=== PATIENT | female | born 1980 | race Caucasian/White ===

== ENCOUNTER 2022-12-18 14:53 | Emergency (ER) | payer SELFPAY ==
[2022-12-18] MEDS ORDERED: KETOROLAC 30 MG/ML INJ ONE (15:34)
[2022-12-18] MEDS ORDERED: NA CHLORIDE 0.9% 1,000 ML ONE (15:35)
[2022-12-18] MEDS ORDERED: FAMOTIDINE 20 MG/2 ML VIAL IV ONE (15:35)
[2022-12-18 16:15] LABS: Specific Gravity 1.019 (1.005-1.030); Urine Bacteria 20-50 /HPF (<20); Urine Bilirubin NEGATIVE (Negative); Urine Blood Negative (Negative); Urine Clarity Extremely Turbid (Clear); Urine Color Light-Yellow (Yellow); Urine Glucose NEGATIVE (Negative); Urine Mucus Slight /HPF (None Seen); Urine Protein NEGATIVE (Negative); Urine Urobilinogen Normal (Normal); Urine pH 7.5 (5.0-7.0)
[2022-12-18 16:39] LABS: Albumin 3.8 g/dL (3.4-5.0); Bilirubin Total 0.3 mg/dL (0.2-1.0); Potassium 3.7 mEq/L (3.5-5.1); Protein, Total 7.2 g/dL (6.4-8.2)
[2022-12-18 16:58] LABS: Absolute Lymphocytes (CBC) 1.4 K/uL (0.7-4.9); Hematocrit 37.5 % (36.0-45.0); Lymphocytes % 15.2 % (15.3-44.8); MCV 85.5 fL (80-100); MPV 7.4 fL (7.6-11.3); Platelets 228 thou/uL (152-406); RBC Red Blood Cell Count 4.38 M/uL (3.86-4.86)
--- NOTE | 2022-12-18 17:18 | RAD REPORT ---
EXAM DESCRIPTION: CT - Abdomen Pelvis W Contrast - 12/18/2022 4:57 pm CLINICAL HISTORY: ABD PAIN COMPARISON: No comparisons TECHNIQUE: Thin cut axial CT imaging of the abdomen and pelvis was performed following intravenous a dministration of 100 mL Isovue 300. Multiplanar reformats were generated and reviewed. All CT scans are performed using dose optimization technique as appropriate and may include automated exposure control or mA/KV adjustment according to patient size. FINDINGS: No suspicious findings in the lung bases. The liver, spleen, and pancreas show no suspicious findings. Gallbladder is decompressed, limiting ev aluation. Symmetric renal function is seen with no hydronephrosis or suspicious renal mass. Left renal nonobstr ucting calculi the largest at the mid to lower pole measuring 9 millimeter. 2 millimeter right interp olar region nonobstructing calculus. Right extra renal pelvis is incidentally noted. No dilated bowel loops or bowel wall thickening. No free air, free fluid or inflammatory stranding. N o hernia, mass or bulky lymphadenopathy. The urinary bladder is without significant finding. No suspicious bony findings. IMPRESSION: No acute intra-abdominal process. Bilateral nonobstructing renal calculi more on the left, the largest measuring 9 millimeter. No hydro ureteronephrosis.
[2022-12-18] MEDS ORDERED: NA CHLORIDE 0.9% 100 ML ONE (17:34)
[2022-12-18] MEDS ORDERED: PIPERACIL/TAZO 3.375 GM VIAL IV ONE (17:34)
--- NOTE | 2022-12-18 17:38 | EDPHYS ---
Physician Documentation [facility] – [place], [place] Name: Lesley Gandhi Age: 42 yrs Sex: Female : 1980 Arrival Date: 12/18/2022 Time: 14:53 Bed Treatment Private MD: ED Physician Rah Charles HPI: 12/18 15:43 This 42 yrs old Female presents to ER via Ambulatory with complaints of Abdominal Pain, snw SOME TYPE OF INFECTION. 15:43 The patient presents with abdominal pain in the left upper quadrant. Onset: The snw symptoms/episode began/occurred suddenly, this morning. Associated signs and symptoms: none. The symptoms are described as sharp. Severity of pain: At its worst the pain was moderate severe. The patient has not experienced similar symptoms in the past. placed on PenVK for Strep B urine infection. 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 - Social history:: Smoking status: Patient reports the use of cigarette tobacco products, smokes one-half pack cigarettes per day. ROS: 15:43 Constitutional: Negative for fever, chills, and weight loss, Eyes: Negative for injury, snw pain, redness, and discharge, ENT: Negative for injury, pain, and discharge, Neck: Negative for injury, pain, and swelling, Cardiovascular: Negative for chest pain, palpitations, and edema, Respiratory: Negative for shortness of breath, cough, wheezing, and pleuritic chest pain, : Negative for injury, bleeding, discharge, and swelling, MS/Extremity: Negative for injury and deformity, Skin: Negative for injury, rash, and discoloration, Neuro: Negative for headache, weakness, numbness, tingling, and seizure, Psych: Negative for depression, anxiety, suicide ideation, homicidal ideation, and hallucinations. 15:43 Abdomen/GI: Positive for abdominal pain, of the left upper quadrant. 15:43 Back: Positive for flank pain, on the left. Exam: 15:42 Constitutional: This is a well developed, well nourished patient who is awake, alert, snw and in no acute distress. Head/Face: Normocephalic, atraumatic. Eyes: Pupils equal round and reactive to light, extra-ocular motions intact. Lids and lashes normal. Conjunctiva and sclera are non-icteric and not injected. Cornea within normal limits. Periorbital areas with no swelling, redness, or edema. ENT: Nares patent. No nasal discharge, no septal abnormalities noted. Tympanic membranes are normal and external auditory canals are clear. Oropharynx with no redness, swelling, or masses, exudates, or evidence of obstruction, uvula midline. Mucous membranes moist. Neck: Trachea midline, no thyromegaly or masses palpated, and no cervical lymphadenopathy. Supple, full range of motion without nuchal rigidity, or vertebral point tenderness. No Meningismus. Chest/axilla: Normal chest wall appearance and motion. Nontender with no deformity. No lesions are appreciated. Cardiovascular: Regular rate and rhythm with a normal S1 and S2. No gallops, murmurs, or rubs. Normal PMI, no JVD. No pulse deficits. Respiratory: Lungs have equal breath sounds bilaterally, clear to auscultation and percussion. No rales, rhonchi or wheezes noted. No increased work of breathing, no retractions or nasal flaring. Back: No spinal tenderness. No costovertebral tenderness. Full range of motion. Skin: Warm, dry with normal turgor. Normal color with no rashes, no lesions, and no evidence of cellulitis. MS/ Extremity: Pulses equal, no cyanosis. Neurovascular intact. Full, normal range of motion. Neuro: Awake and alert, GCS 15, oriented to person, place, time, and situation. Cranial nerves II-XII grossly intact. Motor strength 5/5 in all extremities. Sensory grossly intact. Cerebellar exam normal. Normal gait. Psych: Awake, alert, with orientation to person, place and time. Behavior, mood, and affect are within normal limits. 15:42 Abdomen/GI: Inspection: abdomen appears normal, Bowel sounds: normal, Palpation: moderate abdominal tenderness, in the posterior aspect of left lateral abdomen and left upper quadrant. Vital Signs: 15:00 BP 141 / 86; Pulse 87; Resp 17; Temp 97.9; Pulse Ox 100% ; Weight 70.31 kg; Pain 6/10; ap3 16:46 BP 106 / 74; Pulse 61; Resp 16; Pulse Ox 100% on R/A; mb9 15:00 Pain Scale: Adult ap3 MDM: 15:10 Patient medically screened. snw 15:44 Differential diagnosis: bowel obstruction, gastritis, pancreatitis, Pyelonephritis, snw Ureterolithiasis. Data reviewed: vital signs, nurses notes. 17:01 ED course: returned from CT via W/C in no distress. snw 17:40 ED course: Continue current PenVK rx. snw 12/18 15:22 Order name: CBC with Diff; Complete Time: 17:05 snw 12/18 15:22 Order name: CMP; Complete Time: 16:40 snw 12/18 15:22 Order name: Lipase; Complete Time: 16:40 snw 12/18 15:22 Order name: Urinalysis w/ reflexes; Complete Time: 16:18 snw 12/18 15:22 Order name: [place] Screen Profile; Complete Time: 16:44 snw 12/18 16:18 Order name: Urine Culture EDNM 12/18 15:22 Order name: CT Abd/Pelvis - IV Contrast Only; Complete Time: 17:19 snw 12/18 15:22 Order name: IV Saline Lock; Complete Time: 15:44 snw 12/18 15:22 Order name: Labs collected and sent; Complete Time: 15:44 snw 12/18 16:20 Order name: Labs - recollect needed: recollect lavender top; Complete Time: 16:41 bd Administered Medications: 15:35 Drug: NS 0.9% IV 1000 ml Route: IV; Rate: 1 bolus; Site: left antecubital; mb9 17:39 Follow up: Response: No adverse reaction; IV Status: Completed infusion mb9 15:36 Drug: TORadol - Ketorolac IVP 15 mg Route: IVP; Site: left antecubital; mb9 16:03 Follow up: Response: No adverse reaction mb9 15:38 Drug: Famotidine IVP 20 mg Route: IVP; Site: left antecubital; mb9 16:03 Follow up: Response: No adverse reaction mb9 17:32 Drug: Piperacillin-Tazobactam IVPB 3.375 grams Route: IVPB; Infused Over: 60 mins; mb9 Site: left antecubital; Disposition Summary: 12/18/22 17:37 Discharge Ordered Location: Home snw Condition: Stable snw Diagnosis - UTI/ Urinary tract infection, site not specified snw - Calculus of kidney - bilateral snw Followup: snw - With: Emergency Department - When: As needed - Reason: Fever > 102 F, Worsening of condition Followup: snw - With: Private Physician - When: 1 - 2 days - Reason: Recheck today's complaints, Continuance of care, Re-evaluation by your physician Followup: snw - With: - When: 7 - 10 days - Reason: Recheck today's complaints, Continuance of care Discharge Instructions: - Discharge Summary Sheet snw - Kidney Stones snw - Urinary Tract Infection, Adult snw - Dietary Guidelines to Help Prevent Kidney Stones snw - Rehydration, Adult snw Forms: - Medication Reconciliation Form snw - Thank You Letter snw - Antibiotic Education snw - Prescription Opioid Use snw - Patient Portal Instructions snw - Leadership Thank You Letter snw Prescriptions: - Mobic 7.5 mg Oral Tablet - take 1 tablet by ORAL route 2 times per day take with food; 20 tablet; Refills: snw 0, Product Selection Permitted - Macrobid 100 mg Oral Capsule - take 1 capsule by ORAL route every 12 hours for 10 days; 20 capsule; Refills: snw 0, Product Selection Permitted - promethazine 25 mg Oral Tablet - take 1 tablet by ORAL route every 6 hours As needed; 20 tablet; Refills: 0, snw Product Selection Permitted Signatures: Dispatcher [employer] Ivelisse Hubbard Shelly, AUDIT CONSULTANT-C AUDIT CONSULTANT-Csnw Katie Ortega, RN RN ap3 Dariana Holloway, RN RN mb9
--- NOTE | 2022-12-18 17:38 | ER ---
Nurse's Notes [facility] Name: Lesley Gandhi Age: 42 yrs Sex: Female : 1980 Arrival Date: 12/18/2022 Time: 14:53 Bed Treatment Private MD: Diagnosis: UTI/ Urinary tract infection, site not specified;Calculus of kidney-bilateral Presentation: 12/18 15:00 Chief complaint: Patient states: she is on a penicillin for group B strep in her urine. ap3 patient states she is having left upper abdominal infection, right lower abdominal pain and pain behind her left knee. patient rates her pain as a 6/10 at this time. Coronavirus screen: At this time, the client does not indicate any symptoms associated with coronavirus-19. Ebola Screen: No symptoms or risks identified at this time. Initial Sepsis Screen: Does the patient meet any 2 criteria? No. Patient's initial sepsis screen is negative. Does the patient have a suspected source of infection? Yes: Dysuria/Frequency/Urgency/UTI. Risk Assessment: Do you want to hurt yourself or someone else? Patient reports no desire to harm self or others. Onset of symptoms was December 11, 2022. 15:00 Method Of Arrival: Ambulatory ap3 15:00 Acuity: MULUGETA 3 ap3 Triage Assessment: 15:03 General: Appears in no apparent distress. Behavior is cooperative, appropriate for age. ap3 Pain: Complains of pain in left upper quadrant and right lower quadrant Pain currently is 6 out of 10 on a pain scale. Neuro: Level of Consciousness is awake, alert, obeys commands, Oriented to person, place, time, situation, Gait is steady, Speech is normal. Cardiovascular: Patient's skin is warm and dry. Respiratory: Airway is patent Respiratory effort is even, unlabored, Respiratory pattern is regular, symmetrical. GI: Reports lower abdominal pain, upper abdominal pain. 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 - Social history:: Smoking status: Patient reports the use of cigarette tobacco products, smokes one-half pack cigarettes per day. Screenin:03 [facility] ED Fall Risk Assessment (Adult) History of falling in the last 3 months, ap3 including since admission No falls in past 3 months (0 pts). Abuse screen: Denies threats or abuse. Nutritional screening: No deficits noted. Tuberculosis screening: No symptoms or risk factors identified. Assessment: 15:08 Reassessment: see triage assessment. mb9 16:46 Reassessment: Patient and/or family updated on plan of care and expected duration. Pain mb9 level reassessed. Patient is alert, oriented x 3, equal unlabored respirations, skin warm/dry/pink. Patient states feeling better. Patient states symptoms have improved. 16:52 Reassessment: pt taken to CT via stretcher. mb9 17:40 Reassessment: Discharge pending completion of antibiotics. mb9 Vital Signs: 15:00 BP 141 / 86; Pulse 87; Resp 17; Temp 97.9; Pulse Ox 100% ; Weight 70.31 kg; Pain 6/10; ap3 16:46 BP 106 / 74; Pulse 61; Resp 16; Pulse Ox 100% on R/A; mb9 15:00 Pain Scale: Adult ap3 ED Course: 14:55 Patient arrived in ED. kj1 14:56 Jia Jacinto FNP-C is [facility]. snw 14:56 Rah Charles MD is Attending Physician. snw 15:01 Triage completed. ap3 15:04 Arm band placed on right wrist. ap3 15:08 Dariana Holloway, ART is Primary Nurse. mb9 15:08 Placed in gown. Bed in low position. Call light in reach. Side rails up X 1. Client mb9 placed on continuous cardiac and pulse oximetry monitoring. NIBP monitoring applied. 15:08 No provider procedures requiring assistance completed. mb9 15:33 Inserted saline lock: 22 gauge in left antecubital area, using aseptic technique. mb9 15:44 [place] Screen Profile Sent. mb9 15:44 CBC with Diff Sent. mb9 15:44 CMP Sent. mb9 15:44 Lipase Sent. mb9 15:44 Urinalysis w/ reflexes Sent. mb9 16:24 Urine Culture Sent. mb9 16:58 CT Abd/Pelvis - IV Contrast Only In Process Unspecified. EDMS 17:37 William Kramer MD is Referral Physician. snw 18:43 IV discontinued, intact, bleeding controlled, No redness/swelling at site. Pressure mb9 dressing applied. Administered Medications: 15:35 Drug: NS 0.9% IV 1000 ml Route: IV; Rate: 1 bolus; Site: left antecubital; mb9 17:39 Follow up: Response: No adverse reaction; IV Status: Completed infusion mb9 15:36 Drug: TORadol - Ketorolac IVP 15 mg Route: IVP; Site: left antecubital; mb9 16:03 Follow up: Response: No adverse reaction mb9 15:38 Drug: Famotidine IVP 20 mg Route: IVP; Site: left antecubital; mb9 16:03 Follow up: Response: No adverse reaction mb9 17:32 Drug: Piperacillin-Tazobactam IVPB 3.375 grams Route: IVPB; Infused Over: 60 mins; mb9 Site: left antecubital; Medication: 15:08 VIS not applicable for this client. mb9 Outcome: 17:37 Discharge ordered by . snw 18:43 Discharged to home ambulatory. mb9 18:43 Condition: stable 18:43 Discharge instructions given to patient, Instructed on discharge instructions, follow up and referral plans. Demonstrated understanding of instructions, follow-up care, medications, Prescriptions given X 3. 18:43 Patient left the ED. mb9 Signatures: Dispatcher [employer] EDOH Jia Jacinto, RN FAMILY-C RN FAMILY-Silviaw Katie Ortega RN RN [email or web address] Kailyn Newsome [email or web address] Dariana Holloway RN RN mb9
[2022-12-18 19:35] VITALS: TEMP 97.9; O2SAT 100
[2022-12-18 19:41] VITALS: BP 106/74
== END 2022-12-18 18:43 | disposition home or self-care (01) ==
LOC: ER 14:53
DX: N39.0 Urinary tract infection, site not specified (principal); N20.0 Calculus of kidney; F17.210 Nicotine dependence, cigarettes, uncomplicated; Z88.5 Allergy status to narcotic agent
CPT/HCPCS: 36415; 74177; 80053; 81001; 83690; 85025; 86308; 87086; 87088; 96361; 96374; 96375; 99284; J2543; J7030; Q9967

== ENCOUNTER 2023-11-12 14:12 | Emergency (ER) | payer SELFPAY ==
--- OUTSIDE RECORDS SUMMARY | 2023-11-12 14:16 | XMS REPORT | Continuity of Care Document ---
Author Name Unknown Address [address] [place] [address] [facility] Address [address] [place] [address] Care Team Providers Care Web Architect Name Role Phone PCP, PATIENT DOES NOT HAVE A Primary Care Physic yuli Unavailable Tracee Dempsey DO Attending Clinician [phone] TRACEE DEMPSEY Attending Clinician Unavailab le GC_GCBZW_Kadiyala_S Attending Clinician UnavailAung Burris Attending Clinician Unavailable TRACEE DEMPSEY Admitting Clinician Unavailab le GC_GCBZW_Kadikaleba_S Admitting Clinician UnavailAung Burris Admitting Clinician Unavailable Problems Condition Name Condition Details Condition Category Status Onset Date Resolution Date Last Treatment Date Treating Clinician Comments Source [id number] Bladder pain Problem [facility] [id number] Left upper quadrant pain Problem [facility] [id number] Left flank pain Problem [facility] [id number] Left nephrolith iasis Problem [facility] Allergies, Adverse Reactions, Alerts Allergy Name Allergy Type Status Severity Reaction(s) Onset Date Inactive Date Treating Clinician Comments Source Hydrocod one Propensi ty to adverse reaction s Active Unknown - See comments 2018-05 00:00: 00 [facility] HYDROCOD ONE DRUG INGREDI Active Unknown-Cmnt 2018-05 00:00: 00 [facility] 4614 Drug allergy Active Unknown [facility] Social History Social Habit Start Date Stop Date Quantity Comments Source Sexual orientation U [facility] Sex Assigned At [facility] History of Tobacco Use [facility] Smoking Status Start Date Stop Date Source Tobacco smoking consumption unknown [facility] Medications Ordered Medication Name Filled Medication Name Start Date Stop Date Current Medication? Ordering Clinician Indication Dosage Frequency Signature (SIG) Comments Components Source FENTanyl PF (SUBLIMAZE (PF)) injection 50 mcg 2022-05 20:45: 00 03-30 20:20 :00 No 50ug 50 mcg, Slow IV Push, ONCE, 1 dose, On 03/30/23 at 1445, Routine [facility] NaCl 0.9% (NS) bolus infusion 1,000 mL 2022-05 18:15: 00 03-30 19:14 :00 No 1000mL at 999 mL/hr, 1,000 mL, IV Infusion, ONCE, 1 dose, On 03/30/23 at 1215, [facility] ketorolac (TORADOL) injection 30 mg 2022-05 18:15: 00 03-30 17:37 :00 No 30mg 30 mg, Slow IV Push, ONCE, 1 dose, On 03/30/23 at 1215, Routine [facility] ondansetron (ZOFRAN (PF)) injection 4 mg 2022-05 17:30: 00 03-30 17:37 :00 No 4mg 4 mg, Slow IV Push, ONCE, 1 dose, On 03/30/23 at 1130, [facility] ketorolac 10 mg tablet 2022-05 00:00: 00 Yes [id number] 10mg Take 1 tablet by mouth every 6 (six) hours as needed for Pain (scale 1-3). [facility] ondansetron 4 mg disintegrat ing tablet 2022-05 00:00: 00 Yes [id number] 4mg Take 1 tablet by mouth every 8 (eight) hours as needed for Nausea and Vomiting (N/V). [facility] ibuprofen 600 mg tablet 2018-05 00:00: 00 03-30 00:00 :00 No [id number] 600mg Take 1 tablet by mouth every 6 (six) hours as needed for Pain (scale 4-6). [facility] ondansetron (ZOFRAN ODT) 4 mg disintegrat ing tablet 2018-05 00:00: 00 03-30 00:00 :00 No [id number] 4mg Take 1 tablet by mouth every 8 (eight) hours as needed for Nausea and Vomiting (N/V). [facility] penicillAMI NE 250 MG penicillAMI NE 250 MG No 1{capsu le_on_a n_empty _stomac h} QD penicillAM INE 250 MG hydrOXYzine HCl 25 MG hydrOXYzine HCl 25 MG No 1{table t_as_ne eded} QD hydrOXYzin e HCl 25 MG Macrobid Macrobid No Macrobid Meloxicam 7.5 MG Meloxicam 7.5 MG No 1{table t} QD Meloxicam 7.5 MG Promethazin e HCl 25 MG Promethazin e HCl 25 MG No 1{table t_as_ne eded} BID Promethazi ne HCl 25 MG penicillAMI NE 250 MG penicillAMI NE 250 MG No 1{capsu le_on_a n_empty _stomac h} QD penicillAM INE 250 MG hydrOXYzine HCl 25 MG hydrOXYzine HCl 25 MG No 1{table t_as_ne eded} QD hydrOXYzin e HCl 25 MG Macrobid Macrobid No Macrobid Meloxicam 7.5 MG Meloxicam 7.5 MG No 1{table t} QD Meloxicam 7.5 MG Promethazin e HCl 25 MG Promethazin e HCl 25 MG No 1{table t_as_ne eded} BID Promethazi ne HCl 25 MG penicillAMI NE 250 MG penicillAMI NE 250 MG No 1{capsu le_on_a n_empty _stomac h} QD penicillAM INE 250 MG hydrOXYzine HCl 25 MG hydrOXYzine HCl 25 MG No 1{table t_as_ne eded} QD hydrOXYzin e HCl 25 MG Macrobid Macrobid No Macrobid Meloxicam 7.5 MG Meloxicam 7.5 MG No 1{table t} QD Meloxicam 7.5 MG Promethazin e HCl 25 MG Promethazin e HCl 25 MG No 1{table t_as_ne eded} BID Promethazi ne HCl 25 MG Vital Signs Vital Name Observation Time Observation Value Comments S ource Systolic blood pressure 2023-03-30 22:00:00 114 mm[Hg] [facility] Diastolic blood pressure 2023-03-30 22:00:00 72 mm[Hg] [facility] Heart rate 2023-03-30 22:00:00 57 /min [facility] Body temperature 2023-03-30 22:00:00 36.61 Adina [facility] Respiratory rate 2023-03-30 22:00:00 16 /min [facility] Oxygen saturation in Arterial blood by Pulse oximetry 2023-03-30 22:00:00 99 /min [facility] Body height 2023-03-30 16:45:00 167.6 cm [facility] Body weight 2023-03-30 16:45:00 68.04 kg [facility] BMI 2023-03-30 16:45:00 24.21 kg/m2 [facility] height 2022-12-27 10:00:00 66 [in_i] Commo n [facility] weight 2022-12-27 10:00:00 155.6 [lb_av] Co mmon [facility] temperature 2022-12-27 10:00:00 97.2 [degF] Com mon [facility] bmi 2022-12-27 10:00:00 25.11 kg/m2 Comm on [facility] oximetry 2022-12-27 10:00:00 98 % Commo n [facility] respiratory rate 2022-12-27 10:00:00 18 /min [facility] blood pressure systolic 2022-12-27 10:00:00 111 mm[Hg] [facility] blood pressure diastolic 2022-12-27 10:00:00 69 mm[Hg] [facility] height 2022-12-19 17:15:00 66 [in_i] Commo n [facility] weight 2022-12-19 17:15:00 159.4 [lb_av] Co mmon [facility] temperature 2022-12-19 17:15:00 97.6 [degF] Com mon [facility] bmi 2022-12-19 17:15:00 25.73 kg/m2 Comm on [facility] oximetry 2022-12-19 17:15:00 98 % Commo n [facility] respiratory rate 2022-12-19 17:15:00 18 /min [facility] blood pressure systolic 2022-12-19 17:15:00 127 mm[Hg] [facility] blood pressure diastolic 2022-12-19 17:15:00 78 mm[Hg] [facility] Procedures Procedure Date / Time Performed Performing Clinicia n Source POCT TEST 2023-03-30 17:39:00 Aminah Dempsey ra [facility] COMP. METABOLIC PANEL ([id number]) 2023-03-30 17:36:00 Tracee Dempsey [facility] CBC WITH DIFF 2023-03-30 17:36:00 [facility] 2023-03-30 17:36:00 [facility] OF BENEFITS 2023-03-30 17:10:07 Docto r Unassigned, [place] [facility] CONSENT/REFUSAL FOR DIAGNOSIS AND TREATMENT 2023-03-30 16:41:17 Doctor Unassigned, [place] [facility] Encounters Start Date/Time End Date/Time Encounter Type Admission Type Attending Clinicians Care Facility Care Department Encounter ID Source 2022-12-19 16:27:01 Outpatient [facility] [id number] [facility] 2023-10-01 14:52:16 2023-10-01 14:52:16 Outpatient [facility] [id number] [place] 2023-09-23 11:32:43 2023-09-23 11:32:43 Outpatient [facility] [id number] [place] 2023-05-29 09:05:21 2023-05-29 09:05:21 Outpatient [facility] [id number] [place] 2023-03-30 10:47:00 2023-03-30 16:13:00 Emergency Tracee Dempsey [facility] [id number] [facility] 2023-03-30 10:47:00 2023-03-30 16:13:00 Emergency X TRACEE DEMPSEY [facility] ERT [id number] [facility] 2023-03-02 00:00:00 2023-03-02 00:00:00 Outpatient GC_GCBZW_Ka diyala_S PRIV PRIV [id number] [facility] 2023-03-01 00:00:00 2023-03-01 00:00:00 Outpatient GC_GCBZW_Ka diyala_S PRIV PRIV [id number] [facility] 2023-01-21 00:00:00 2023-01-21 00:00:00 (TEL) [facility] [id number] [facility] 2022-12-27 00:00:00 2022-12-27 00:00:00 OFFICE VISIT ESTAB PT LEVEL 4 [facility] ST[facility] [id number] [facility] 2022-12-19 00:00:00 2022-12-19 00:00:00 OFFICE VISIT NEW PT LEVEL 3 [facility] [id number] [facility] 2022-12-13 14:39:37 2022-12-13 14:39:37 Outpatient [facility] [id number] [place] 2022-09-04 13:13:02 2022-09-04 13:13:02 Outpatient [facility] [id number] [place] 2019-04-22 10:45:50 2019-04-22 13:59:00 Emergency X KALA, K [facility] ERT [id number] [facility] Results Test Description Test Time Test Comments Results Result Co mments Source COMPREHENSIVE METABOLIC [id number] 03:52:37* Test Item Value Reference Range Interpretation Comme nts GLUCOSE (test code = 2217) 102 MG/DL 70-99 H BUN (test code = 2208) 11 MG/DL 6-20 CREATININE (test code = 2214) 0.80 MG/DL 0.60-1.30 eGFR (2020 CKD-EPI) (test co de = 22503) 94 ML/MIN/1.73 >60 CALC BUN/CREAT (test code = 2235) 14 RATIO 6-28 SODIUM (test code = 2231) 138 MEQ/L 133-146 POTASSIUM (test code = 2228) 4.3 MEQ/L 3.5-5.4 CHLORIDE (test code = 2215) 103 MEQ/L 95-107 CARBON DIOXIDE (test code = 2206) 24 MEQ/L 19-31 CALCIUM (test code = 2209) 9.6 MG/DL 8.5-10.5 PROTEIN, TOTAL (test code = 2229) 7.5 G/DL 6.1-8.3 ALBUMIN (test code = 2201) 4.8 G/DL 3.5-5.2 CALC GLOBULIN (test code = 2240) 2.7 G/DL 1.9-3.7 CALC A/G RATIO (test code = 2234) 1.8 RATIO 1.0-2.6 BILIRUBIN, TOTAL (test code = 2207) 0.4 MG/DL <=1.2 ALKALINE PHOSPHATASE (test code = 2204) 53 U/L 40-113 AST (test code = 2218) 15 U/L 9-40 ALT (test code = 2219) 18 U/L 5-40 LIPID [id number] 03:52:37* Test Item Value Reference Range Interpretation Comme nts CHOLESTEROL (test code = 2210) 208 MG/DL <200 H TRIGLYCERIDES (test code = 2232) 115 MG/DL <150 HDL CHOLESTEROL (test code = 2220) 42 MG/DL >39 CALC LDL CHOL (test code = 2237) 143 MG/DL <100 H NOTE: CALCULATED LDL IS BASED ON JAMEY-ALEJANDRE METHOD WHICHINCLUDES ADJUSTABLE TRIGLYCERIDE:VLDL CHOLESTEROL RATIO.THIS FACTOR VARIES BY MEASURED TRIGLYCERIDE AND NON-HDLCHOLESTEROL CONCENTRATIONS WITH INCREASED CALCULATED LDL SEENIN HIGHER TRIGLYCERIDE OR LOWER NON-HDL SPECIMENS. FOR MOREINFORMATION, SEE CLIENT ANNOUNCEMENT AT [email or web address] [email or web address] RATIO LDL/HDL (test code = 2238) 3.40 RATIO <3.22 H HEMOGLOBIN [id number] 02:13:54* Test Item Value Reference Range Interpretation Comme nts HEMOGLOBIN A1c (test code = 81098) 5.7 % 4.2-5.6 H [employer] GUIDELINES FOR HGB A1C: PREDIABETES/INCREASED RISK . . . . . . . 5.7-6.4% DIAGNOSIS OF DIABETES . . . . . . . . . >=6.5% WITH CONFIRMATION OR APPROPRIATE SYMPTOMS NOTE: ASSAY MAY BE AFFECTED BY HEMOGLOBINOPATHIES (SICKLE CELL ANEMIA, S-C DISEASE, OTHERS) OR ARTIFICIALLY LOWERED BY DECREASED RED CELL SURVIVAL (HEMOLYTIC ANEMIAS, BLOOD LOSS, ETC.). CONSIDER ALTERNATE TESTING OR LABORATORY CONSULTATION. UNLESS OTHERWISE INDICATED, ALL TESTING PERFORMED AT [facility] [address] [place] [address] TECHNICAL SUPPORT CONSULTANT: MARCELLA CINTRON M.D. CLIA NUMBER [id number] [facility] [place]. [id number] COMP. METABOLIC PANEL ([id number])2023-03-30 18:10:19* Test Item Value Reference Range Interpretation Comme nts NA (test code = 6240451199) 139 mmol/L 135-145 K (test code = 7952369301) 4.2 mmol/L 3.5-5.0 CL (test code = 5060899558) 105 mmol/L 98-108 CO2 TOTAL (test code = 5398786613) 28 mmol/L 23-31 AGAP (test code = 5588218218) 6 2-16 BUN (test code = 7467688656) 12 mg/dL 7-23 GLUCOSE (test code = 4776881587) 98 mg/dL 70-110 CREATININE (test code = 6163123370) 0.70 mg/dL 0.50-1.04 TOTAL BILI (test code = 7226040592) 0.4 mg/dL 0.1-1.1 CALCIUM (test code = 2007501210) 9.6 mg/dL 8.6-10.6 T PROTEIN (test code = 6748030124) 8.0 g/dL 6.3-8.2 ALBUMIN (test code = 0365518020) 4.6 g/dL 3.5-5.0 ALK PHOS (test code = 0935791187) 44 U/L 34-122 ALTv (test code = 1742-6) 18 U/L 5-35 AST(SGOT) (test code = 5982819829) 20 U/L 13-40 eGFR (test code = 89692-5) 110.2 mL/min/1.73m2 CKD-EPI eGFR (20 21). Assuming creatinine has been stable day-to-day for at least three months, the eGFR indicates Category G1 (>= 90 mL/min/1.73 m2) [facility] WITH [id number] 18:00:39* Test Item Value Reference Range Interpretation Comme nts WBC (test code = 6690-2) 6.60 See_Comment [Automated virtual tweens ltda bCODE] The system which generated this result transmitted reference range: 4.30 - 11.10 10*3/?L. The reference range was not used to interpret this result as normal/abnormal. RBC (test code = 789-8) 4.78 See_Comment [Automated virtual tweens ltda bCODE] The system which generated this result transmitted reference range: 3.93 - 5.25 10*6/?L. The reference range was not used to interpret this result as normal/abnormal. HGB (test code = 718-7) 14.1 g/dL 11.6-15.0 HCT (test code = 4544-3) 40.8 % 35.7-45.2 MCV (test code = 787-2) 85.4 fL 80.6-95.5 MCH (test code = 785-6) 29.5 pg 25.9-32.8 MCHC (test code = 786-4) 34.6 g/dL 31.6-35.1 RDW-SD (test code = 47289-3) 35.5 fL 39.0-49.9 L RDW-CV (test code = 788-0) 11.5 % 12.0-15.5 L PLT (test code = 777-3) 214 See_Comment [Automated virtual tweens ltda ge] The system which generated this result transmitted reference range: 166 - 358 10*3/?L. The reference range was not used to interpret this result as normal/abnormal. MPV (test code = 55511-5) 9.1 fL 9.5-12.9 L NRBC/100 WBC (test code = 3020876759) 0.0 See_Comment [Automated [employer] ssage] The system which generated this result transmitted reference range: 0.0 - 10.0 /100 WBCs. The reference range was not used to interpret this result as normal/abnormal. NRBC x10^3 (test code = 4514035001) See_Comment [Automated virtual tweens ltda ge] The system which generated this result transmitted reference range: 10*3/?L. The reference range was not used to interpret this result as normal/abnormal. GRAN MAT (NEUT) % (test code = 770-8) 64.9 % IMM GRAN % (test code = 6560970467) 0.30 % LYMPH % (test code = 736-9) 25.0 % MONO % (test code = 5905-5) 8.3 % EOS % (test code = 713-8) 0.9 % BASO % (test code = 706-2) 0.6 % GRAN MAT x10^3(ANC) (test code = 8905601868) 4.28 10*3/uL 1.88-7.09 IMM GRAN x10^3 (test code = 9441607087) 0.00-0.06 LYMPH x10^3 (test code = 731-0) 1.65 10*3/uL 1.32-3.29 MONO x10^3 (test code = 742-7) 0.55 10*3/uL 0.33-0.92 EOS x10^3 (test code = 711-2) 0.06 10*3/uL 0.03-0.39 BASO x10^3 (test code = 704-7) 0.04 10*3/uL 0.01-0.07 Lab Interpretation (test code = 64199-2) [facility]normal [id number] 17:39:00* Test Item Value Reference Range Interpretation Comme nts POCT PREG (test code = 1605) Negative On board controls acceptable with C Line (test code = 3574) Yes POCT PREG LOT # (test code = 3575) [id number] POCT PREG TEST DATE ( test code = 3576) [id number] Lab Interpretation (test cod e = 96913-6) Normal [facility] [id number] 09:27:29SPECIMEN NUMBER: [id number] CULTURE, URINE SPECIMEN NUMBER: [id number] SPECIMEN COMMENT: URINE SOURCE: URINE REPORT STATUS: FINAL FINAL REPORT: 03/22/2023 <10,000 CFU/ML UROGENITAL SHANNAN PRESENT NO COMMON PATHOGENS UNLESS OTHERWISE INDICATED, ALL TESTING PERFORMED AT [facility] [address] [place] [address] TECHNICAL SUPPORT CONSULTANT: MARCELLA CINTRON M.D. CLIA NUMBER [id number] [place]. [id number], [id number] 11:08:08SPECIMEN NUMBER: [id number] CULTURE, URINE SPECIMEN NUMBER: [id number] SOURCE: URINE REPORT STATUS: FINAL ISOLATE NUMBER 1: IDENTIFICATION: 12/15/2022 <10,000 CFU/ML STREPTOCOCCUS AGALACTIAE (GROUP B) ADDITIONAL OBSERVATIONS: PENICILLIN AND AMPICILLIN ARE DRUGS OF CHOICE FOR TREATMENT OF B-HEMOLYTIC STREPTOCOCCAL INFECTIONS. SUSCEPTIBILITY TESTING OF PENICILLIN AND OTHER B-LACTAMS APPROVED BY THE [place] FOOD AND DRUG ADMINISTRATION FOR TREATMENT OF B-HEMOLYTIC STREPTOCOCCAL INFECTIONS NEED NOT BE PERFORMED ROUTINELY. ADDITIONAL OBSERVATIONS: 12/15/2022 10-50,000 CFU/ML UROGENITAL SHANNAN PRESENT NO COMMON PATHOGENS UNLESS OTHERWISE INDICATED, ALL TESTING PERFORMED AT [employer] [facility] [address] [place] [address] TECHNICAL SUPPORT CONSULTANT: MARCELLA CINTRON M.D. CLIA NUMBER [id number] [place]. [id number] METABOLIC [id number] 17:41:37* Test Item Value Reference Range Interpretation Comme nts GLUCOSE (test code = 2216) 95 MG/DL 70-99 BUN (test code = 2207) 19 MG/DL 6-20 CREATININE (test code = 2213) 0.73 MG/DL 0.60-1.30 eGFR (2020 CKD-EPI) (test code = 09076) 105 ML/MIN/1.73 >60 CALC BUN/CREAT (test code = 2234) 26 RATIO 6-28 SODIUM (test code = 2230) 141 MEQ/L 133-146 POTASSIUM (test code = 2227) 4.4 MEQ/L 3.5-5.4 CHLORIDE (test code = 2214) 102 MEQ/L 95-107 CARBON DIOXIDE (test code = 2205) 20 MEQ/L 19-31 CALCIUM (test code = 2208) 10.0 MG/DL 8.5-10.5 PROTEIN, TOTAL (test code = 2228) 7.9 G/DL 6.1-8.3 ALBUMIN (test code = 2200) 5.1 G/DL 3.5-5.2 CALC GLOBULIN (test code = 2239) 2.8 G/DL 1.9-3.7 CALC A/G RATIO (test code = 2233) 1.8 RATIO 1.0-2.6 BILIRUBIN, TOTAL (test code = 2206) 0.3 MG/DL See_Comment [Automated me ssage] The system which generated this result transmitted reference range: <=1.2. The reference range was not used to interpret this result as normal/abnormal. ALKALINE PHOSPHATASE (test code = 2203) 57 U/L 40-113 AST (test code = 2217) 16 U/L 9-40 ALT (test code = 2219) 15 U/L 5-40 LIPID [id number] 17:41:37* Test Item Value Reference Range Interpretation Comme nts CHOLESTEROL (test code = 2210) 227 MG/DL <200 H TRIGLYCERIDES (test code = 2232) 162 MG/DL <150 H HDL CHOLESTEROL (test code = 222) 40 MG/DL >39 CALC LDL CHOL (test code = 2236) 157 MG/DL <100 H NOTE: CALCULATED LDL IS BASED ON JMAEY-ALEJANDRE METHOD WHICHINCLUDES ADJUSTABLE TRIGLYCERIDE:VLDL CHOLESTEROL RATIO.THIS FACTOR VARIES BY MEASURED TRIGLYCERIDE AND NON-HDLCHOLESTEROL CONCENTRATIONS WITH INCREASED CALCULATED LDL SEENIN HIGHER TRIGLYCERIDE OR LOWER NON-HDL SPECIMENS. FOR MOREINFORMATION, SEE CLIENT ANNOUNCEMENT AT [email or web address] /[email or web address] RISK RATIO LDL/HDL (test code = 2238) 3.93 RATIO <3.22 H [facility] has i mportant pathology staff changes effective 07/04/2022. New pathology staff will provide uninterrupted, excellent patient care and clinical consultation. See URL: [email or web address]. UNLESS OTHERWISE INDICATED, ALL TESTING PERFORMED AT [facility] [address] [place] [address] TECHNICAL SUPPORT CONSULTANT: MARCELLA CINTRON M.D. [place] NUMBER [id number] [facility] [place]. [id number] CBC W/AUTO DIFF WITH [id number] 03:07:08* Test Item Value Reference Range Interpretation Comme nts WBC (test code = 1001) 6.2 K/UL 3.5-11.0 RBC (test code = 1002) 4.92 M/UL 3.80-5.40 HEMOGLOBIN (test code = 1003) 14.0 G/DL 11.5-15.5 HEMATOCRIT (test code = 1004) 42.4 % 34.0-45.0 MCV (test code = 1005) 86.2 fL 80.0-99.0 MCH (test code = 1006) 28.5 PG 25.0-33.0 MCHC (test code = 1007) 33.0 G/DL 31.0-36.0 RDW (test code = 1038) 11.7 % 11.5-15.0 NEUTROPHILS (test code = 1008) 66.0 % LYMPHOCYTES (test code = 1010) 25.7 % MONOCYTES (test code = 1011) 6.9 % EOSINOPHILS (test code = 1012) 0.5 % BASOPHILS (test code = 1013) 0.6 % IMMATURE GRANULOCYTES (test code = 1036) 0.3 % NUCLEATED RBCS (test code = 1065) 0.0 /100 WBC'S See_Comment [Automated virtual tweens ltda ge] The system which generated this result transmitted reference range: 0.0. The reference range was not used to interpret this result as normal/abnormal. PLATELET COUNT (test code = 1015) 259 K/UL 130-400 ABSOLUTE NEUTROPHILS (test code = 1066) 4.11 K/UL 1.50-7.50 ABSOLUTE LYMPHOCYTES (test code = 1067) 1.60 K/UL 1.00-4.00 ABSOLUTE MONOCYTES (test code = 1068) 0.43 K/UL 0.20-1.00 ABSOLUTE EOSINOPHILS (test code = 1040) 0.03 K/UL 0.00-0.50 ABSOLUTE BASOPHILS (test code = 1069) 0.04 K/UL 0.00-0.20 ABS IMMATURE GRANULOCYTES (test code = 1020) 0.02 K/UL 0.00-0.10 ABS NUCLEATED RBCS (test code = 22039) 0.00 K/UL 0.00-0.11 COMPREHENSIVE METABOLIC [id number] 04:10:55* Test Item Value Reference Range Interpretation Comme nts GLUCOSE (test code = 2217) 92 MG/DL 70-99 BUN (test code = 2207) 17 MG/DL 6-20 CREATININE (test code = 2214) 0.77 MG/DL 0.60-1.30 eGFR (2020 CKD-EPI) (test code = 05077) 99 ML/MIN/1.73 >60 CALC BUN/CREAT (test code = 2235) 22 RATIO 6-28 SODIUM (test code = 223) 141 MEQ/L 133-146 POTASSIUM (test code = 2228) 4.1 MEQ/L 3.5-5.4 CHLORIDE (test code = 2215) 102 MEQ/L 95-107 CARBON DIOXIDE (test code = 2206) 25 MEQ/L 19-31 CALCIUM (test code = 2209) 9.9 MG/DL 8.5-10.5 PROTEIN, TOTAL (test code = 222) 7.8 G/DL 6.1-8.3 ALBUMIN (test code = 2201) 5.0 G/DL 3.5-5.2 CALC GLOBULIN (test code = 2240) 2.8 G/DL 1.9-3.7 CALC A/G RATIO (test code = 2234) 1.8 RATIO 1.0-2.6 BILIRUBIN, TOTAL (test code = 2207) 0.3 MG/DL See_Comment [Automated me ssage] The system which generated this result transmitted reference range: <=1.2. The reference range was not used to interpret this result as normal/abnormal. ALKALINE PHOSPHATASE (test code = 2204) 66 U/L 40-113 AST (test code = 2218) 14 U/L 9-40 ALT (test code = 2219) 14 U/L 5-40 LIPID [id number] 04:10:55* Test Item Value Reference Range Interpretation Comme nts CHOLESTEROL (test code = 2210) 208 MG/DL <200 H TRIGLYCERIDES (test code = 2232) 162 MG/DL <150 H HDL CHOLESTEROL (test code = 2220) 37 MG/DL >39 L CALC LDL CHOL (test code = 2237) 141 MG/DL <100 H NOTE: CALCULATED LDL IS BASED ON JAMEY-ALEJANDRE METHOD WHICHINCLUDES ADJUSTABLE TRIGLYCERIDE:VLDL CHOLESTEROL RATIO.THIS FACTOR VARIES BY MEASURED TRIGLYCERIDE AND NON-HDLCHOLESTEROL CONCENTRATIONS WITH INCREASED CALCULATED LDL SEENIN HIGHER TRIGLYCERIDE OR LOWER NON-HDL SPECIMENS. FOR MOREINFORMATION, SEE CLIENT ANNOUNCEMENT AT [email or web address] [email or web address] LDL/HDL (test code = 2238) 3.81 RATIO <3.22 H CBC W/AUTO DIFF WITH [id number] 02:59:17* Test Item Value Reference Range Interpretation Comme nts WBC (test code = 1001) 7.6 K/UL 3.5-11.0 RBC (test code = 1002) 4.94 M/UL 3.80-5.40 HEMOGLOBIN (test code = 1003) 14.1 G/DL 11.5-15.5 HEMATOCRIT (test code = 1004) 41.1 % 34.0-45.0 MCV (test code = 1005) 83.2 fL 80.0-99.0 MCH (test code = 1006) 28.5 PG 25.0-33.0 MCHC (test code = 1007) 34.3 G/DL 31.0-36.0 RDW (test code = 1038) 12.0 % 11.5-15.0 NEUTROPHILS (test code = 1008) 70.1 % LYMPHOCYTES (test code = 1010) 21.8 % MONOCYTES (test code = 1011) 6.7 % EOSINOPHILS (test code = 1012) 0.8 % BASOPHILS (test code = 1013) 0.3 % IMMATURE GRANULOCYTES (test code = 1036) 0.3 % NUCLEATED RBCS (test code = 1065) 0.0 /100 WBC'S See_Comment [Automated message] The system which generated this result transmitted reference range: 0.0. The reference range was not used to interpret this result as normal/abnormal. PLATELET COUNT (test code = 1015) 253 K/UL 130-400 ABSOLUTE NEUTROPHILS (test code = 1066) 5.36 K/UL 1.50-7.50 ABSOLUTE LYMPHOCYTES (test code = 1067) 1.66 K/UL 1.00-4.00 ABSOLUTE MONOCYTES (test code = 1068) 0.51 K/UL 0.20-1.00 ABSOLUTE EOSINOPHILS (test code = 1040) 0.06 K/UL 0.00-0.50 ABSOLUTE BASOPHILS (test code = 1069) 0.02 K/UL 0.00-0.20 ABS IMMATURE GRANULOCYTES (test code = 1020) 0.02 K/UL 0.00-0.10 ABS NUCLEATED RBCS (test code = 09875) 0.00 K/UL 0.00-0.11 UNLESS OTHER SILVERMAN INDICATED, ALL TESTING PERFORMED [facility] [address] [place] [id number] TECHNICAL SUPPORT CONSULTANT: WILLIE GARCES M.D. CLIA NUMBER [id number] [facility] [place]. [id number]
[2023-11-12] MEDS ORDERED: KETOROLAC 30 MG/ML INJ ONE (15:17)
[2023-11-12] MEDS ORDERED: LIDOCAINE VISCOUS 2% 10ML ORAL SOLN ONE (15:18)
[2023-11-12 15:39] LABS: Absolute Eosinophils 0.1 K/uL (0-0.5); Absolute Lymphocytes (CBC) 1.5 K/uL (0.7-4.9); Absolute Monocytes 0.5 K/uL (0.1-1.3); Absolute Neutrophil 5.9 K/uL (1.8-8.0); Basophils % 0.5 % (0-1.3); Eosinophils % 0.9 % (0-4.4); Hematocrit 38.2 % (36.0-45.0); Hemoglobin 12.8 g/dL (12.0-15.0); Lymphocytes % 18.6 % (15.3-44.8); MCH 29.1 pg (27.0-35.0); MCHC 33.4 g/dL (32.0-36.0); MCV 87.1 fL (80-100); MPV 7.5 fL (7.6-11.3); Monocytes % 6.6 % (3.3-12.3); Neutrophils % 73.4 % (41.7-73.7); Platelets 269 thou/uL (152-406); RBC Red Blood Cell Count 4.39 M/uL (3.86-4.86); Red Cell Distribution Width 12.3 % (12.1-15.2)
[2023-11-12 15:40] LABS: Specific Gravity 1.011 (1.005-1.030)
[2023-11-12 15:56] LABS: Anion Gap 4.4 mEq/L (5.0-15.0); Potassium 3.4 mEq/L (3.5-5.1)
[2023-11-12] MEDS ORDERED: CLINDAMYCIN 600MG/D5W 50 ML IV ONE (18:35)
[2023-11-12] MEDS ORDERED: dexAMETHasone 10 MG/ML VIAL ONE (18:35)
--- NOTE | 2023-11-12 19:42 | RAD REPORT ---
EXAM DESCRIPTION: CT - Soft Tissue Neck W/Contr CLINICAL HISTORY: Sore throat;Swelling COMPARISON: No comparisons TECHNIQUE All CT scans are performed using dose optimization technique as appropriate and may includ e automated exposure control or mA/KV adjustment according to patient size. FINDINGS: Nasopharyngeal tissues are normal in appearance. Fossa Rosenmller are normal. No evidence of prevertebral fluid or peritonsillar fluid. Tongue base structures are normal. Epiglottis and aryepiglottic folds are normal. Under aeration is seen of the left piriform sinus. Slight asymmetry of the vocal cords are present. Normal size thyroid gland. Salivary glands are normal in appearance. Upper lung parish are clear. Included intracranial contents are unremarkable. IMPRESSION: No abscess is identified.
--- NOTE | 2023-11-12 21:08 | EDPHYS ---
Physician Documentation [facility] Name: Lesley Gandhi Age: 43 yrs Sex: Female : 1980 Arrival Date: 11/12/2023 Time: 14:12 Bed 12 Private MD: ED Physician Tim Ramirez HPI: 11/11 14:54 This 43 yrs old Female presents to ER via Ambulatory with complaints of Sore Throat. sb4 14:54 sore throat x 12 days, took 875 mg amoxicillin BID x 10 days, symptoms persists.noticed sb4 a pus pocket on her left tonsil, worried about an abscess. denies any fever/chills. 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 - Infectious Disease History:: Denies. - Social history:: Smoking status: Patient reports the use of cigarette tobacco products, smokes one-half pack cigarettes per day. ROS: 14:56 Constitutional: Negative for fever, chills, and weight loss, sb4 14:56 ENT: Positive for sore throat, 14:56 All other systems are negative, Exam: 14:56 Constitutional: This is a well developed, well nourished patient who is awake, alert, sb4 and in no acute distress. Head/Face: Normocephalic, atraumatic. Eyes: Extra-ocular motions intact. Periorbital areas with no swelling, redness, or edema. Skin: Warm, dry with normal turgor. Normal color with no rashes, no lesions, and no evidence of cellulitis. MS/ Extremity: Pulses equal, no cyanosis. Neurovascular intact. Full, normal range of motion. 14:56 ENT: Posterior pharynx: Tonsils: enlarged on the left, with erythema, with exudate, Vital Signs: 14:25 BP 139 / 80; Pulse 77; Resp 18; Temp 97.8; Pulse Ox 100% ; Weight 66.22 kg; Height 5 as6 ft. 6 in. ; Pain 9/10; 15:33 BP 119 / 87; Pulse 71; Resp 18; Pulse Ox 100% on R/A; al5 16:30 BP 131 / 83; Pulse 75; Resp 18; Pulse Ox 100% on R/A; al5 17:30 BP 120 / 77; Pulse 70; Resp 18; Pulse Ox 100% on R/A; al5 19:15 BP 122 / 88; Pulse 74; Resp 18; Pulse Ox 100% on R/A; al5 14:25 Body Mass Index 23.56 (66.22 kg, 167.64 cm) as6 14:25 Pain Scale: Adult as6 MDM: 14:30 Patient medically screened. sb4 18:27 ED course: Dr. Marin reports no evidence of peritonsillar abscess on CT. sb4 18:59 Data reviewed: vital signs, nurses notes, lab test result(s), radiologic studies, and sb4 as a result, I will discharge patient. Counseling: I had a detailed discussion with the patient and/or guardian regarding the historical points, exam findings, and any diagnostic results supporting the discharge/admit diagnosis, lab results, radiology results, to return to the emergency department if symptoms worsen or persist or if there are any questions or concerns that arise at home. 11/11 14:53 Order name: CBC with Diff; Complete Time: 18:14 sb4 11/11 14:53 Order name: BMP; Complete Time: 18:14 sb4 11/11 14:53 Order name: Test, Urine; Complete Time: 18:14 sb4 11/11 14:55 Order name: Strep; Complete Time: 18:14 sb4 11/11 15:49 Order name: Throat Culture EDMI 11/11 14:53 Order name: CT Soft Tissue Neck W/contr sb4 11/11 14:53 Order name: IV Start; Complete Time: 15:12 sb4 Administered Medications: 14:55 Not Given (Physician Discretion): [id number] mg IM once sb4 15:29 Drug: Ketorolac IVP 30 mg IVP once Route: IVP; Site: right antecubital; al5 19:15 Follow up: Response: No adverse reaction al5 15:31 Not Given (med not available in xis, verified with WES Balderrama via verbal al5 readback. Gave Lidocaine 2% viscous swallow): viscous lidocaineliquid (4 %) 5 ml Mucous Membrane once; swallow 18:48 Drug: Clindamycin IVPB 600 mg IVPB once over 30 mins; (mix in 50 mL) Route: IVPB; al5 Infused Over: 30 mins; Site: right antecubital; 19:14 Follow up: IV Status: Completed infusion; IV Intake: 50ml al5 18:48 Drug: Decadron - Dexamethasone IVP 10 mg IVP once Route: IVP; Site: right antecubital; al5 19:14 Follow up: Response: No adverse reaction al5 Disposition: 21:14 I was immediately available on-site in the Emergency Department for consultation in the ms3 care of the patient. Disposition Summary: 11/12/23 19:00 Discharge Ordered Notes: Location: Home sb4 Problem: new sb4 Symptoms: have improved sb4 Condition: Stable sb4 Diagnosis - Acute tonsillitis, unspecified sb4 Followup: sb4 - With: Emergency Department - When: As needed - Reason: Trouble breathing, Worsening of condition Discharge Instructions: - Discharge Summary Sheet sb4 - Tonsillitis, [id number] sb4 Forms: - Antibiotic Education sb4 - Patient Portal Instructions sb4 - Leadership Thank You Letter sb4 Prescriptions: - Clindamycin HCl 300 mg Oral capsule - take 1 capsule ORAL route every 8 hours for 10 days; 30 capsule; Refills: 0, sb4 Product Selection Permitted Signatures: Dispatcher [employer] EDTim Wilkerson, DO ms3 Edmundo Pedersen RN RN as6 Marjorie Aquino, PAJeannineC PAJeannineC sb4 Katie Cruz RN RN al5 Corrections: (The following items were deleted from the chart) 14:53 14:53 Soft Tissue Neck W/Contr+CT.RAD.BRZ ordered. EDMS EDMS
--- NOTE | 2023-11-12 21:08 | ER ---
Nurse's Notes [facility] Name: Lesley Gandhi Age: 43 yrs Sex: Female : 1980 Arrival Date: 11/12/2023 Time: 14:12 Bed 12 Private MD: Diagnosis: Acute tonsillitis, unspecified Presentation: 11/11 14:25 Chief complaint: Patient states: "I think I have an abscess in my throat" pt has as6 completed a course of antibiotics with no improvements. Coronavirus screen: At this time, the client does not indicate any symptoms associated with coronavirus-19. Ebola Screen: No symptoms or risks identified at this time. Initial Sepsis Screen: Does the patient meet any 2 criteria? No. Patient's initial sepsis screen is negative. Does the patient have a suspected source of infection? No. Patient's initial sepsis screen is negative. Risk Assessment: Do you want to hurt yourself or someone else? Patient reports no desire to harm self or others. Onset of symptoms was October 31, 2023. 14:25 Acuity: MULUGETA 3 as6 14:25 Method Of Arrival: Ambulatory as6 Triage Assessment: 14:46 General: Appears in no apparent distress. comfortable, Behavior is calm, cooperative. cm10 Pain: Complains of pain in Throat Pain radiates to left ear. EENT: Throat is reddened Reports pain in left ear when swallowing. Cardiovascular: No deficits noted. Patient's skin is warm and dry. Respiratory: No deficits noted. Airway is patent Respiratory effort is even, unlabored, Respiratory pattern is regular, symmetrical. Derm: No deficits noted. Skin is intact, Skin is pink, warm \\T\\ dry. Musculoskeletal: No deficits noted. Range of motion: intact in all extremities. 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 - Infectious Disease History:: Denies. - Social history:: Smoking status: Patient reports the use of cigarette tobacco products, smokes one-half pack cigarettes per day. Screenin:47 [facility] ED Fall Risk Assessment (Adult) History of falling in the last 3 months, cm10 including since admission No falls in past 3 months (0 pts) Confusion or Disorientation No (0 pts) Intoxicated or Sedated No (0 pts) Impaired Gait No (0 pts) Mobility Assist Device Used No (0 pt) Altered Elimination No (0 pt) Score/Fall Risk Level 0 - 2 = Low Risk Oriented to surroundings, Maintained a safe environment, Hourly rounding (assess needs \\T\\ fall precautionary measures) done. Abuse screen: Denies threats or abuse. Denies injuries from another. Nutritional screening: No deficits noted. Tuberculosis screening: No symptoms or risk factors identified. Assessment: 15:31 General: Appears in no apparent distress. uncomfortable, Behavior is calm, cooperative. al5 Pain: Complains of pain in L side neck, throat. Neuro: Level of Consciousness is awake, alert, obeys commands, Oriented to person, place, time, situation. Respiratory: Airway is patent Trachea midline Respiratory effort is even, unlabored, Respiratory pattern is regular, symmetrical, Breath sounds are clear bilaterally. GI: No deficits noted. No signs and/or symptoms were reported involving the gastrointestinal system. : No deficits noted. No signs and/or symptoms were reported regarding the genitourinary system. EENT: Reports pain in L side neck, throat. 16:30 Reassessment: Patient appears in no apparent distress at this time. Patient and/or al5 family updated on plan of care and expected duration. Pain level reassessed. Patient is alert, oriented x 3, equal unlabored respirations, skin warm/dry/pink. Patient states feeling better. Vital Signs: 14:25 BP 139 / 80; Pulse 77; Resp 18; Temp 97.8; Pulse Ox 100% ; Weight 66.22 kg; Height 5 as6 ft. 6 in. ; Pain 9/10; 15:33 BP 119 / 87; Pulse 71; Resp 18; Pulse Ox 100% on R/A; al5 16:30 BP 131 / 83; Pulse 75; Resp 18; Pulse Ox 100% on R/A; al5 17:30 BP 120 / 77; Pulse 70; Resp 18; Pulse Ox 100% on R/A; al5 19:15 BP 122 / 88; Pulse 74; Resp 18; Pulse Ox 100% on R/A; al5 14:25 Body Mass Index 23.56 (66.22 kg, 167.64 cm) as6 14:25 Pain Scale: Adult as6 ED Course: 14:14 Patient arrived in ED. im 14:15 Marjorie Aquino PA-C [facility]. sb4 14:15 Tim Ramirez DO is Attending Physician. sb4 14:27 Triage completed. as6 14:28 Arm band placed on. as6 14:47 Patient has correct armband on for positive identification. Bed in low position. Call cm10 light in reach. Provided Education on: ER process and procedures.. Cardiac monitoring not applicable on this patient. 14:54 Katie Cruz, RN is Primary Nurse. al5 15:12 BMP Sent. al5 15:12 CBC with Diff Sent. al5 15:12 Test, Urine Sent. al5 15:12 Strep Sent. al5 15:12 No provider procedures requiring assistance completed. Inserted saline lock: 22 gauge al5 in right antecubital area, using aseptic technique. 15:12 Initial lab(s) drawn, by me, sent to lab. Urine collected: clean catch specimen, clear. al5 19:14 IV discontinued, intact, bleeding controlled, No redness/swelling at site. Pressure al5 dressing applied. 21:05 CT Soft Tissue Neck W/contr In Process Unspecified. EDMS Administered Medications: 14:55 Not Given (Physician Discretion): [id number] mg IM once sb4 15:29 Drug: Ketorolac IVP 30 mg IVP once Route: IVP; Site: right antecubital; al5 19:15 Follow up: Response: No adverse reaction al5 15:31 Not Given (med not available in pyxis, verified with WES Balderrama via verbal al5 readback. Gave Lidocaine 2% viscous swallow): viscous lidocaineliquid (4 %) 5 ml Mucous Membrane once; swallow 18:48 Drug: Clindamycin IVPB 600 mg IVPB once over 30 mins; (mix in 50 mL) Route: IVPB; al5 Infused Over: 30 mins; Site: right antecubital; 19:14 Follow up: IV Status: Completed infusion; IV Intake: 50ml al5 18:48 Drug: Decadron - Dexamethasone IVP 10 mg IVP once Route: IVP; Site: right antecubital; al5 19:14 Follow up: Response: No adverse reaction al5 Medication: 14:47 VIS not applicable for this client. cm10 Intake: 19:14 IV: 50ml; Total: 50ml. al5 Outcome: 19:00 Discharge ordered by . sb4 19:14 Discharged to home ambulatory, with significant other, al5 19:14 Condition: good 19:14 Discharge instructions given to patient, Instructed on discharge instructions, follow up and referral plans. medication usage, Demonstrated understanding of instructions, follow-up care, medications, 19:14 Patient left the ED. al5 Signatures: Dispatcher [employer] EDEdmundo Stearns RN RN as6 Marjorie Aquino, PA-C PA-C sb4 Nata Giang Clarissa RN RN cm10 Katie Cruz RN RN al5
[2023-11-12 22:52] VITALS: BP 122/88; TEMP 97.8; O2SAT 100
== END 2023-11-12 19:14 | disposition home or self-care (01) ==
LOC: ER 14:12
DX: J03.90 Acute tonsillitis, unspecified (principal); F17.210 Nicotine dependence, cigarettes, uncomplicated; Z88.5 Allergy status to narcotic agent
CPT/HCPCS: 36415; 70491; 80048; 81025; 85025; 87070; 87081; 96365; 96375; 99284; J1100; Q9967